=== PATIENT | female | born 1995 ===

== ENCOUNTER → 2023-03-05 | Outpatient (CLI) | payer OTHER ==
[2023-03-10 17:11] LABS: CHLAMYDIA TRACHOMATIS, NAA Negative (Negative); HPV 16 Negative (Negative); HPV 18 Negative (Negative); HPV OTHER HR TYPES Negative (Negative)
== END | disposition home or self-care (01) ==
LOC: LAB 09:20 → LAB SHORT 09:20
PROVIDERS: Obstetrics & Gynecology
DX: Z34.01 Encounter for supervision of normal first pregnancy, first trimester (principal); Z11.3 Encounter for screening for infections with a predominantly sexual mode of transmission
CPT/HCPCS: 87491; 87591; 87624; G0145

== ENCOUNTER → 2023-06-26 | Outpatient (CLI) | payer OTHER | LOC: LAB 17:14 | DX: O23.43 Unspecified infection of urinary tract in pregnancy, third trimester (principal); Z3A.00 Weeks of gestation of pregnancy not specified ==

== ENCOUNTER → 2023-08-17 | Outpatient (CLI) | payer OTHER | END | disposition home or self-care (01) | LOC: LAB SHORT 09:58 → LAB 09:58 | DX: O09.892 Supervision of other high risk pregnancies, second trimester (principal) | CPT/HCPCS: 87081; 87150 ==

== ENCOUNTER 2023-09-11 10:35 | Inpatient (IN) | payer OTHER ==
[2023-09-11] VITALS (18 sets, daily range): BP systolic 112–139; BP diastolic 69–88
[~2023-09-11] VITALS: Ht 160 cm; Wt 84.5 kg
[2023-09-11] MEDS ORDERED: ONDA4 PO (11:02)
[2023-09-11 11:59] LABS: BASOPHILS ABSOLUTE AUTO 0.06 K/mm3 (0.00-0.23); BASOPHILS PERCENT AUTO 1 % (0-2); EOSINOPHILS ABSOLUTE AUTO 0.02 K/mm3 (0.00-0.68); EOSINOPHILS PERCENT AUTO 0 % (0-6); Hematocrit 32.5 % (33.0-51.0); Hemoglobin 10.4 g/dL (11.5-16.0); IMMATURE GRAN ABSOLUTE AUTO 0.04 K/mm3 (0.00-0.10); IMMATURE GRAN PERCENT AUTO 0 % (0-1); LYMPHOCYTES ABSOLUTE AUTO 1.37 K/mm3 (0.84-5.20); LYMPHOCYTES PERCENT AUTO 15 % (21-46); MONOCYTES ABSOLUTE AUTO 0.57 K/mm3 (0.16-1.47); MONOCYTES PERCENT AUTO 6 % (4-13); Mean Corpuscular HGB 26.9 pg (26.0-34.0); Mean Corpuscular Volume 84 fL (80-100); Mean Platelet Volume 10.1 fL (9.1-12.4); NEUTROPHILS ABSOLUTE AUTO 7.17 K/mm3 (1.96-9.15); NEUTROPHILS PERCENT AUTO 78 % (41-73); Platelet Count 247 K/mm3 (150-400); RDW Coefficient Variation 16.1 % (11.7-14.2); RDW Standard Deviation 48.5 fL (35.1-46.3); Red Blood Cell Count 3.87 M/mm3 (3.80-5.20); White Blood Cell Count 9.23 K/mm3 (4.00-11.30)
[2023-09-11 14:47] LABS: PCO2 Cord - Venous 48.4 mmHg (40-50); PO2 Cord - Venous 26.9 mmHg (28-32); pH Umbilical Cord - Venous 7.32 (7.26-7.35)
--- NOTE | 2023-09-11 15:16 | NUR ---
09/11/23 1516 Aleyda Quiroz CORD BLOOD SENT WITH BABY NURSE. CORD SEGMENT SENT WITH RESPIRATORY THERAPIST.
[2023-09-12 01:27] VITALS: BP 122/62
[2023-09-12 03:57] VITALS: BP 126/72
[2023-09-12 07:46] VITALS: BP 120/63
[2023-09-12 10:22] LABS: BASOPHILS ABSOLUTE AUTO 0.04 K/mm3 (0.00-0.23); BASOPHILS PERCENT AUTO 0 % (0-2); EOSINOPHILS ABSOLUTE AUTO 0.04 K/mm3 (0.00-0.68); EOSINOPHILS PERCENT AUTO 0 % (0-6); Hematocrit 30.4 % (33.0-51.0); Hemoglobin 9.8 g/dL (11.5-16.0); IMMATURE GRAN ABSOLUTE AUTO 0.04 K/mm3 (0.00-0.10); IMMATURE GRAN PERCENT AUTO 0 % (0-1); LYMPHOCYTES ABSOLUTE AUTO 1.34 K/mm3 (0.84-5.20); LYMPHOCYTES PERCENT AUTO 14 % (21-46); MONOCYTES ABSOLUTE AUTO 0.56 K/mm3 (0.16-1.47); MONOCYTES PERCENT AUTO 6 % (4-13); Mean Corpuscular HGB 27.2 pg (26.0-34.0); Mean Corpuscular HGB Conc 32.2 g/dL (31.5-36.5); Mean Corpuscular Volume 84 fL (80-100); NEUTROPHILS ABSOLUTE AUTO 7.27 K/mm3 (1.96-9.15); NEUTROPHILS PERCENT AUTO 78 % (41-73); Platelet Count 223 K/mm3 (150-400); RDW Coefficient Variation 16.3 % (11.7-14.2); RDW Standard Deviation 49.2 fL (35.1-46.3); White Blood Cell Count 9.29 K/mm3 (4.00-11.30)
[2023-09-12 11:43] VITALS: BP 115/63
[2023-09-12 15:48] VITALS: BP 118/64
--- NOTE | 2023-09-12 18:25 | NUR ---
PT C/O FEELING "OUT OF IT" AND THEN LATER ON REPORTED BEING NAUSEATED. VSS. PT MEDICATED WITH ZOFRAN AND SHE REPORTS THAT IT IS HELPING. PT ALSO ENCOURAGED TO EAT WELL, INCREASE FLUID INTAKE, AND INCREASE MOBILITY. PT VERBALIZED UNDERSTANDING. DR GROSS IN HOUSE, SO THIS RN UPDATED HER ON PT STATUS. NO NEW ORDERS AT THIS TIME.
[2023-09-12 19:38] VITALS: BP 141/90
[2023-09-13 01:02] VITALS: BP 126/74
[2023-09-13 04:16] VITALS: BP 126/70
[2023-09-13 07:43] VITALS: BP 127/64
[2023-09-13] MEDS ORDERED: IBUP800 PO (10:46)
[2023-09-13] MEDS ORDERED: OXAYDO5 M1 PO (10:46)
[2023-09-13] MEDS ORDERED: PRENATAL TABLE1 EAC2 PO (10:47)
[2023-09-13 11:09] VITALS: BP 124/67
--- NOTE | 2023-09-13 14:30 | NUR ---
BANDS MATCHED. NB OUT OF ROOM IN CAR SEAT. MOTHER AMBULATED OUT OF ROOM. D/C INSTRUCTIONS WERE DISCUSSED, ALL QUESTIONS ANSWER. MOTHER AND FATHER VERBALIZED UNDERSTANDING. PT ACCOMPANIED BY AND PARENTS.
== END 2023-09-13 14:10 | disposition home or self-care (01) | DRG 788 ==
LOC: BC 10:35
PROVIDERS: ADMIT Obstetrics & Gynecology
PROC: 10D00Z1 Extraction of Products of Conception, Low, Open Approach (ICD-10-PCS; principal; 2023-09-11 14:00)
DX: O24.420 Gestational diabetes mellitus in childbirth, diet controlled (principal); O64.1XX0 Obstructed labor due to breech presentation, not applicable or unspecified; O42.02 Full-term premature rupture of membranes, onset of labor within 24 hours of rupture; Z3A.39 39 weeks gestation of pregnancy; Z37.0 Single live birth; O77.0 Labor and delivery complicated by meconium in amniotic fluid; Z88.8 Allergy status to other drugs, medicaments and biological substances; Z79.899 Other long term (current) drug therapy
CPT/HCPCS: 36415; 82803; 82947; 85025; 86850; 86900; 86901; A9270; J0690; J1885; J2371; J2405; J2590; J3010; J7120